=== PATIENT | male | born 1980 | race Caucasian/White ===

== ENCOUNTER 2022-09-29 19:17 | Emergency (ER) | payer BC, SELFPAY ==
[2022-09-29 19:26] VITALS: BP 113/63; PULSE 114; RESP 18; TEMP 36.4; O2SAT 99
--- NOTE | 2022-09-29 20:01 | ED.EAR ---
HPI - Ear Problem General Chief complaint: Ear Stated complaint: Right Ear Pain Time Seen by Provider: 09/29/22 20:00 Source: patient Mode of arrival: ambulatory Limitations: no limitations History of Present Illness HPI Narrative: 42-year-old male presented for complaint of drainage coming from the right ear with the full sensation and pressure. He denies significant pain, tinnitus, dizziness, nausea, fevers or chills. He has taken Sudafed for symptoms. Denies sick contacts. MD Complaint: ear pain Related Data Home Medications Medication Instructions Recorded Confirmed escitalopram oxalate 10 mg tablet 5 mg DAILY 09/29/22 09/29/22 loratadine 10 mg tablet (Claritin) 10 mg PO DAILY 09/29/22 09/29/22 meloxicam 7.5 mg tablet 10 mg DAILY 09/29/22 09/29/22 Allergies Allergy/AdvReac Type Severity Reaction Status Date / Time No Known Allergies Allergy Verified 09/29/22 19:30 Review of Systems Review of Systems: CONSTITUTIONAL: Denies malaise, chills, or fever. EYES: Denies visual changes, redness, or discharge. ENT: Denies rhinorrhea, congestion, sinus pain, and sore throat. Reports ear pain CARDIOVASCULAR: Denies chest pain, palpitations, or edema. RESPIRATORY: Denies cough or dyspnea. GASTROINTESTINAL: Denies abdominal pain, nausea, vomiting, diarrhea SKIN: Denies rash or itching. MUSCULOSKELETAL: Denies myalgia. NEUROLOGIC: Denies headache. All systems reviewed & are unremarkable except as noted in HPI and below PMFSH Comments At time of signature, agree with nursing past medical, surgical, social and family history. There is no relevant family history pertinent to the presenting complaint Exam Narrative: GENERAL: Well-appearing, EYES: PERRLA, conjunctivae clear ENT: Nares clear. Mucous membranes moist. Left TM pearly friend with dull light reflex; Right TM erythematous and bulging with purulent effusion, purulent effusion noted to the erythematous swollen canal as well. no tragal tenderness. Oropharynx not erythematous without lesions. CHEST: Clear to auscultation, breath sounds equal. No wheezing, rhonchi, rales, or stridor. HEART: Regular rate and rhythm. No murmur heard. SKIN: Warm, dry, no rash. NEURO: Alert and oriented x3. PSYCH: Normal mood and affect Course Course Emergency Course: Patient is aware of diagnosis, understands and agrees to treatment plan. Anticipatory guidance given. Patient agrees to follow-up as directed and is aware of reasons to seek care at the emergency department. Portions of this record may have been created with voice recognition software Level of Care: Express Care Visit Vital Signs Vital signs: Vital Signs Temperature 97.5 F L 09/29/22 19:26 Pulse Rate 114 H 09/29/22 19:26 Respiratory Rate 18 09/29/22 19:26 Blood Pressure 113/63 09/29/22 19:26 Pulse Oximetry 99 09/29/22 19:26 Oxygen Delivery Room Air 09/29/22 19:26 Temperature 97.5 F L 09/29/22 19:26 Pulse Rate 114 H 09/29/22 19:26 Respiratory Rate 18 09/29/22 19:26 Blood Pressure 113/63 09/29/22 19:26 Pulse Oximetry 99 09/29/22 19:26 Oxygen Delivery Room Air 09/29/22 19:26 Reviewed Medical Decision Making MDM Narrative Medical decision making narrative: Advised supportive measures and signs/symptoms to go to the ER. Patient is appropriate for outpatient treatment and follow-up. Differential Diagnosis Differential Diagnosis: Coronavirus, strep pharyngitis, allergic rhinitis, upper respiratory tract infection, sinusitis, rhinosinusitis, nasopharyngitis, viral pharyngitis, otitis media, otitis externa, eustachian tube dysfunction, foreign body, cerumen impaction. Vital Signs Vital Signs: Vital Signs Temperature 97.5 F L 09/29/22 19:26 Pulse Rate 114 H 09/29/22 19:26 Respiratory Rate 18 09/29/22 19:26 Blood Pressure 113/63 09/29/22 19:26 Pulse Oximetry 99 09/29/22 19:26 Oxygen Delivery Room Air 09/29/22 19:26 Temperature 97.5 F L 09/29/22
== END 2022-09-29 20:09 | disposition home or self-care (01) ==
PROVIDERS: Emergency Provider Nurse Practitioner Family
DX: H60.92 Unspecified otitis externa, left ear (principal); H66.92 Otitis media, unspecified, left ear; F32.A Depression, unspecified
CPT/HCPCS: 99213; G0463